=== PATIENT | male | born 1995 | race Two or more races ===

== ENCOUNTER 2019-11-15 11:05 | Inpatient (IN) | payer MEDICAID ==
[~2019-11-15] VITALS: Ht 167.6 cm; Wt 138.1 kg
[~2019-11-15 11:05] MED LIST: CYCL-1 PO
[2019-11-15 15:54] LABS: BASOPHILS % (AUTO) 0.4 % (0-1); EOSINOPHILS # (AUTO) 0.3 X10'3 (0-0.9); EOSINOPHILS % (AUTO) 2.7 % (0-6); HEMATOCRIT 43.2 % (42.0-52.0); HEMOGLOBIN 14.6 g/dl (14.0-17.9); LYMPHOCYTES # (AUTO) 2.6 X10'3 (1.1-4.8); MEAN CORPUSCULAR HEMOGLOBIN 32.2 PG (27.0-31.0); MEAN CORPUSCULAR HGB CONC 33.8 g/dL (33.0-36.5); MEAN CORPUSCULAR VOLUME 95.5 FL (78-98); MEAN PLATELET VOLUME 7.1 FL (7.4-10.4); MONOCYTES # (AUTO) 0.9 X10'3 (0-0.9); MONOCYTES % (AUTO) 8.5 % (2-12); NEUTROPHILS # (AUTO) 6.6 X10'3 (1.8-7.7); NEUTROPHILS % (AUTO) 63.4 % (42-75); PLATELET COUNT 302 X10'3 (140-440); RED BLOOD COUNT 4.53 X10'6 (4.70-6.10); RED CELL DISTRIBUTION WIDTH 15.2 % (11.5-14.5); WHITE BLOOD COUNT 10.5 X10'3 (4.5-11.0)
[2019-11-15 16:05] LABS: ALANINE AMINOTRANSFERASE 93 U/L (12-78); ALBUMIN/GLOBULIN RATIO 0.8 (1.1-1.5); ALKALINE PHOSPHATASE 126 IU/L (46-116); ANION GAP 8 (8-16); ASPARTATE AMINO TRANSFERASE 37 U/L (10-37); BILIRUBIN,TOTAL 0.4 MG/DL (0.1-1.0); BLOOD UREA NITROGEN 16 MG/DL (7-18); BUN/CREATININE RATIO 12.3 (5.4-32.0); CALCIUM 9.2 MG/DL (8.5-10.1); CHLORIDE 107 MMOL/L (99-107); GLUCOSE 79 MG/DL (70-104); POTASSIUM 3.7 MMOL/L (3.5-5.1); SODIUM 144 MMOL/L (135-145); TOTAL CARBON DIOXIDE 29.1 MMOL/L (24-32); TOTAL PROTEIN 9.2 G/DL (6.4-8.2); eGFR 70 ML/MIN
--- NOTE | 2019-11-15 16:15 | NUR ---
patient refused strraight cath and also reports he is "not able to pee right now" Karri made aware,ordered to bladder scan patient.Tech to get scanner to pcu.
[2019-11-15] MEDS ORDERED: normal saline 1000ML IV soln IVB ONE (17:35)
--- NOTE | 2019-11-15 17:53 | NUR ---
ATTEMPTED TO CALL PTS GIRL FRIEND WENT TO VOICE MAIL MSG LEFT
--- NOTE | 2019-11-15 18:02 | NUR ---
PATIENT REFUSING EKG, WILL NOTIFY PROVIDER
[2019-11-15 18:06] LABS: PARTIAL THROMBOPLASTIN TIME 26 SECONDS (22-32)
[2019-11-15 18:08] LABS: ETHANOL < 0.010 GM/DL (0.0-0.010); TROPONIN I < 0.04 NG/ML (0.0-0.05)
[2019-11-15] MEDS ORDERED: LORazepam 2 mg/ml vial IV ONE (21:20)
[2019-11-15] MEDS ORDERED: fentaNYL/PF 50MCG/1 ML 2ML syringe ONE (21:35)
[2019-11-15] MEDS ORDERED: LIDOcaine 1% (10mg/ml) 2ml vial ONE (21:37)
[2019-11-15 23:13] LABS: APPEARANCE,CSF CLEAR; CSF SUPERNATANT COLOR COLORLESS; CSF VOLUME 8 ML
[2019-11-15 23:16] LABS: APPEARANCE,CSF CLEAR; CSF SUPERNATANT COLOR COLORLESS; CSF VOLUME 8 ML
[2019-11-15 23:18] LABS: CSF RBC 0 /CU MM (0); CSF WBC CT 1 /CU MM (0-5)
[2019-11-15 23:22] LABS: GLUCOSE,CSF 62 MG/DL (40-75); TOTAL PROTEIN,CSF 37 MG/DL (15-45)
[2019-11-15 23:23] LABS: TUBE# COUNTED 1
[2019-11-15 23:24] LABS: CSF RBC 26 /CU MM (0); CSF WBC CT 3 /CU MM (0-5)
[2019-11-15 23:25] LABS: TUBE# COUNTED 4
[2019-11-15] MEDS ORDERED: acetaminophen 325mg tablet PO PRN ×2 (23:25)
[2019-11-15] MEDS ORDERED: magnesium hydroxide 30ml (MOM) UD suspension PO PRN (23:25)
[2019-11-15] MEDS: K, MAG and/or Phos replacement - Verify level? MC SCH (23:25)
[2019-11-15] MEDS ORDERED: potassium Cl 20 mEq SR tablet PO PRN (23:25)
[2019-11-15] MEDS ORDERED: potassium CL 10mEq/100ml bag 100 ML IV PRN ×2 (23:25)
[2019-11-16] VITALS (18 sets, daily range): BP systolic 90–133; BP diastolic 46–76
--- NOTE | 2019-11-16 00:22 | NUR ---
Patient continues to take his monitor off despite reminders from nurse to keep it on. Girlfriend at bedside encouraging him to keep it on but he continues to remove it
[2019-11-16] MEDS: normal saline 1000ml 1,000 ML IV SCH ×2 (01:45→11:19)
[2019-11-16] MEDS ORDERED: IMMUNE GLOBULIN 10 GM/100 ML IV SCH (02:00)
--- NOTE | 2019-11-16 02:05 | NUR ---
Patient in room ED 11. I have received report from HERACLIO Cuellar and had the opportunity to ask questions and assume patient care. Patient to be transported via gurney to CICU room 2011.
--- NOTE | 2019-11-16 02:15 | NUR ---
Patient arrived from ER via gurney. Patient is awake and oriented to name and date. Patient does not know location, date or why he is here. Patient transferred via slider board to ICU bed. Patient placed on first line supervisor showing normal sinus rhythm. Vital signs assessed. Bed bath given, 2 RN skin check completed. Patient is able to feel touch to right foot and toes. Left foot and great toe only. Patient unable to move his feet, feet and lower legs flaccid. Upper extremities with equal movement. Patient appears to be fatigued and is slow to respond to questions. After assessment, improvement to orientation. Patient oriented to person, and place. He remains confused about date and events. Patient denies any pins and needles sensation to lower extremities. Patient with numbness to bilateral lower extremities, lower extremities are flaccid. Patient is unable to lift legs off of gurney.
[2019-11-16] MEDS ORDERED: LIDOcaine 2% 10ml TOPICAL JELLY (Urojet) TP ONE (03:30)
[2019-11-16 04:17] LABS: URINE AMPHETAMINE SCREEN NEGATIVE (Neg); URINE BARBITUATE SCREEN NEGATIVE (Neg); URINE BENZODIAZEPINES SCREEN NEGATIVE (Neg); URINE CANNABINOID SCREEN POSITIVE (Neg); URINE COCAINE SCREEN NEGATIVE (Neg); URINE METHADONE SCREEN NEGATIVE (Neg); URINE OPIATE SCREEN NEGATIVE (Neg); URINE PHENCYCLIDINE SCREEN NEGATIVE (Neg)
[2019-11-16 04:41] LABS: CLARITY,URINE CLEAR (Clear); COLOR,URINE AMBER (Yellow); GLUCOSE, URINE NEGATIVE (Neg); KETONES,URINE TRACE mg/dl (Neg); LEUKOCYTE ESTERASE ,URINE NEGATIVE (Neg); NITRITES, URINE NEGATIVE (Neg); OCCULT BLOOD,URINE NEGATIVE (Neg); PH,URINE 5.5 (4.8-8.0); PROTEIN,URINE TRACE mg/dl (Neg)
[2019-11-16 04:43] LABS: UA COLLECTION TYPE CLN CATCH MIDSTREAM
[2019-11-16 04:54] LABS: RBC,URINE 0-2 /HPF (0-2); WBC,URINE 0-4 /HPF (0-4)
[2019-11-16 04:55] LABS: BACTERIA,URINE 1+ /HPF (Neg); MUCUS STRANDS MODERATE /LPF (Neg); SQUAMOUS EPITHELIAL CELL,UR NONE SEEN /LPF (FEW)
[2019-11-16 04:56] LABS: CAL OXALATE CRYSTALS FEW /HPF (NEGATIVE)
[2019-11-16] MEDS: ondansetron/PF 4mg/2ml inj IV PRN ×2 (05:13→08:10)
[2019-11-16 05:41] LABS: ALANINE AMINOTRANSFERASE 72 U/L (12-78); ALBUMIN 3.4 G/DL (3.4-5.0); ALBUMIN/GLOBULIN RATIO 0.7 (1.1-1.5); ALKALINE PHOSPHATASE 105 IU/L (46-116); ANION GAP 9 (8-16); ASPARTATE AMINO TRANSFERASE 25 U/L (10-37); BILIRUBIN,TOTAL 0.3 MG/DL (0.1-1.0); BLOOD UREA NITROGEN 14 MG/DL (7-18); BUN/CREATININE RATIO 12.5 (5.4-32.0); CALCIUM 8.2 MG/DL (8.5-10.1); CHLORIDE 109 MMOL/L (99-107); CREATININE 1.12 MG/DL (0.60-1.10); GLUCOSE 99 MG/DL (70-104); PHOSPHORUS 3.3 MG/DL (2.3-4.5); POTASSIUM 3.4 MMOL/L (3.5-5.1); SODIUM 144 MMOL/L (135-145); TOTAL PROTEIN 8.3 G/DL (6.4-8.2); eGFR 83 ML/MIN
[2019-11-16 05:56] LABS: BASOPHILS % (AUTO) 0.5 % (0-1); EOSINOPHILS # (AUTO) 0.3 X10'3 (0-0.9); EOSINOPHILS % (AUTO) 4.6 % (0-6); HEMATOCRIT 38.4 % (42.0-52.0); LYMPHOCYTES # (AUTO) 2.4 X10'3 (1.1-4.8); LYMPHOCYTES % (AUTO) 31.4 % (21-51); MEAN CORPUSCULAR HEMOGLOBIN 32.4 PG (27.0-31.0); MEAN CORPUSCULAR HGB CONC 33.8 g/dL (33.0-36.5); MEAN CORPUSCULAR VOLUME 95.9 FL (78-98); MEAN PLATELET VOLUME 7.7 FL (7.4-10.4); MONOCYTES # (AUTO) 0.7 X10'3 (0-0.9); MONOCYTES % (AUTO) 8.7 % (2-12); NEUTROPHILS # (AUTO) 4.2 X10'3 (1.8-7.7); NEUTROPHILS % (AUTO) 54.8 % (42-75); PLATELET COUNT 278 X10'3 (140-440); RED CELL DISTRIBUTION WIDTH 15.2 % (11.5-14.5); WHITE BLOOD COUNT 7.6 X10'3 (4.5-11.0)
--- NOTE | 2019-11-16 06:29 | NUR ---
Problems reprioritized. Patient report given, questions answered & plan of care reviewed with HERACLIO Gann.
[2019-11-16 06:54] LABS: HIV ANTIBODY 1&2 RAPID NON-REACTIVE (Neg)
[2019-11-16] MEDS: K, MAG and/or Phos replacement - Verify level? MC SCH (08:00)
[2019-11-16] MEDS: pantoprazole 40mg Tablet.DR PO SCH (08:10)
[2019-11-16] MEDS: enoxaparin 40mg/0.4ml syringe SUBCUT SCH (08:10)
--- NOTE | 2019-11-16 09:28 | NUR ---
Dr. Pettit contacted regarding patient frequent bowel movements that are liquidy. Patient has a history of ER visit on 11/06/19 to [facility]. No antibiotic use. Requisition filled out. Left message for Dr. Pettit to contact back.
[2019-11-16] MEDS: potassium Cl 20 mEq SR tablet PO PRN ×2 (17:32→21:34)
--- NOTE | 2019-11-16 17:52 | NUR ---
Report called to receiving nurse. Transferred via hospital bed with all belongings. Special Issues communicated to receiving nurse, Sujata PULLIAM.
--- NOTE | 2019-11-16 18:05 | NUR ---
Patient in room PCU 3020. I have received report from ICU, RN and had the opportunity to ask questions and assume patient care.
--- NOTE | 2019-11-16 18:06 | NUR ---
Pt arrived to unit stable. Oriented pt to room and call light. VS are 127/57-98%-78-18-98.7- 0/10
--- NOTE | 2019-11-16 18:07 | NUR ---
Problems reprioritized. Patient report given, questions answered & plan of care reviewed with HERACLIO Cleveland .
--- NOTE | 2019-11-16 18:30 | NUR ---
Patient in room PCU 3020. I have received report from Sujata PULLIAM and had the opportunity to ask questions and assume patient care.
[2019-11-17] MEDS ORDERED: IMMUNE GLOBULIN 10 GM/100 ML IV ONE ×2 (00:20→02:00)
[2019-11-17] MEDS: ondansetron/PF 4mg/2ml inj IV PRN (00:47)
[2019-11-17] MEDS: normal saline 1000ml 1,000 ML IV SCH ×2 (00:56→15:25)
[2019-11-17 02:00] VITALS: BP 114/55
[2019-11-17] MEDS: potassium Cl 20 mEq SR tablet PO PRN (02:25)
[2019-11-17 05:29] LABS: ALANINE AMINOTRANSFERASE 55 U/L (12-78); ALBUMIN 3.3 G/DL (3.4-5.0); ALBUMIN/GLOBULIN RATIO 0.6 (1.1-1.5); ALKALINE PHOSPHATASE 102 IU/L (46-116); ANION GAP 5 (8-16); ASPARTATE AMINO TRANSFERASE 14 U/L (10-37); BILIRUBIN,TOTAL 0.5 MG/DL (0.1-1.0); BLOOD UREA NITROGEN 9 MG/DL (7-18); BUN/CREATININE RATIO 8.3 (5.4-32.0); CALCIUM 9.2 MG/DL (8.5-10.1); CHLORIDE 107 MMOL/L (99-107); CREATININE 1.09 MG/DL (0.60-1.10); GLUCOSE 106 MG/DL (70-104); MAGNESIUM 2.1 MG/DL (1.5-2.4); PHOSPHORUS 3.2 MG/DL (2.3-4.5); POTASSIUM 3.8 MMOL/L (3.5-5.1); SODIUM 141 MMOL/L (135-145); TOTAL CARBON DIOXIDE 28.9 MMOL/L (24-32); eGFR 85 ML/MIN
--- NOTE | 2019-11-17 06:00 | NUR ---
Patient in room U 3010. I have received report from Adrienne PULLIAM and had the opportunity to ask questions and assume patient care. Patient is sitting in bed watching TV. sitter present.
[2019-11-17 06:18] LABS: BASOPHILS % (AUTO) 0.2 % (0-1); EOSINOPHILS # (AUTO) 0.1 X10'3 (0-0.9); EOSINOPHILS % (AUTO) 1.3 % (0-6); HEMATOCRIT 38.6 % (42.0-52.0); HEMOGLOBIN 13.3 g/dl (14.0-17.9); LYMPHOCYTES # (AUTO) 2.5 X10'3 (1.1-4.8); LYMPHOCYTES % (AUTO) 30.9 % (21-51); MEAN CORPUSCULAR HEMOGLOBIN 33.4 PG (27.0-31.0); MEAN CORPUSCULAR HGB CONC 34.5 g/dL (33.0-36.5); MEAN CORPUSCULAR VOLUME 96.6 FL (78-98); MEAN PLATELET VOLUME 7.5 FL (7.4-10.4); MONOCYTES # (AUTO) 0.5 X10'3 (0-0.9); MONOCYTES % (AUTO) 6.1 % (2-12); NEUTROPHILS # (AUTO) 4.9 X10'3 (1.8-7.7); NEUTROPHILS % (AUTO) 61.5 % (42-75); PLATELET COUNT 312 X10'3 (140-440); RED CELL DISTRIBUTION WIDTH 15.3 % (11.5-14.5)
--- NOTE | 2019-11-17 06:27 | NUR ---
Problems reprioritized. Patient report given, questions answered & plan of care reviewed with Francine PULLIAM.
[2019-11-17 07:00] VITALS: BP 136/80
[2019-11-17] MEDS: pantoprazole 40mg Tablet.DR PO SCH (07:44)
[2019-11-17] MEDS: enoxaparin 40mg/0.4ml syringe SUBCUT SCH (07:44)
[2019-11-17] MEDS: K, MAG and/or Phos replacement - Verify level? MC SCH (07:45)
[2019-11-17 08:10] LABS: IMMUNOGLOBULIN A, QN, SERUM 428 mg/dL (90-386); IMMUNOGLOBULIN G, QN, SERUM 1847 mg/dL (603-1613); IMMUNOGLOBULIN M, QN, SERUM 83 mg/dL (20-172)
[2019-11-17 09:25] LABS: C DIFF ANTIGEN NEGATIVE (NEGATIVE); C DIFF SPECIMEN=DIARRHEA? ACCEPTABLE; C DIFFICILE TOXINS A&B NEGATIVE (Neg)
[2019-11-17] MEDS ORDERED: MISCELLANEOUS INJECTION IV ONE (10:30)
[2019-11-17 11:00] VITALS: BP 106/43
[2019-11-17 15:00] VITALS: BP 113/44
[2019-11-17 18:00] VITALS: BP 137/65
--- NOTE | 2019-11-17 18:11 | NUR ---
Problems reprioritized. Patient report given, questions answered & plan of care reviewed with Adrienne PULLIAM[]. Patient alert, oriented and sitting up in bed at time of transfer
--- NOTE | 2019-11-17 18:32 | NUR ---
Patient in room U 3016. I have received report from Alisa PULLIAM and had the opportunity to ask questions and assume patient care. Addendum: 11/17/19 at 1833 by Megha Gibson RN Francine PULLIAM provided report not Alisa PULLIAM.
[2019-11-17 22:00] VITALS: BP 106/59
[2019-11-18 02:00] VITALS: BP 112/61
[2019-11-18] MEDS ORDERED: IMMUNE GLOBULIN 10 GM/100 ML IV SCH (02:00)
[2019-11-18] MEDS ORDERED: [UNRECOGNIZED DRUG - OTHER] IV SCH (02:00)
[2019-11-18] MEDS: [UNRECOGNIZED DRUG - OTHER] IV SCH (02:56)
[2019-11-18] MEDS: normal saline 1000ml 1,000 ML IV SCH ×2 (05:17→17:47)
--- NOTE | 2019-11-18 06:16 | NUR ---
Problems reprioritized. Patient report given, questions answered & plan of care reviewed with Charito PULLIAM.
--- NOTE | 2019-11-18 06:18 | NUR ---
Patient in room PCU 3016. I have received report from Megha PULLIAM and had the opportunity to ask questions and assume patient care.
[2019-11-18 06:32] LABS: BASOPHILS % (AUTO) 0.3 % (0-1); EOSINOPHILS # (AUTO) 0.2 X10'3 (0-0.9); EOSINOPHILS % (AUTO) 1.9 % (0-6); HEMATOCRIT 38.2 % (42.0-52.0); LYMPHOCYTES # (AUTO) 2.2 X10'3 (1.1-4.8); LYMPHOCYTES % (AUTO) 26.1 % (21-51); MEAN CORPUSCULAR HEMOGLOBIN 32.4 PG (27.0-31.0); MEAN CORPUSCULAR HGB CONC 34.1 g/dL (33.0-36.5); MEAN CORPUSCULAR VOLUME 95.1 FL (78-98); MEAN PLATELET VOLUME 7.4 FL (7.4-10.4); MONOCYTES # (AUTO) 0.7 X10'3 (0-0.9); MONOCYTES % (AUTO) 7.9 % (2-12); NEUTROPHILS # (AUTO) 5.3 X10'3 (1.8-7.7); NEUTROPHILS % (AUTO) 63.8 % (42-75); PLATELET COUNT 333 X10'3 (140-440); RED BLOOD COUNT 4.02 X10'6 (4.70-6.10); WHITE BLOOD COUNT 8.3 X10'3 (4.5-11.0)
[2019-11-18 06:50] VITALS: BP 114/61
[2019-11-18 07:02] LABS: ALANINE AMINOTRANSFERASE 42 U/L (12-78); ALBUMIN 3.2 G/DL (3.4-5.0); ALBUMIN/GLOBULIN RATIO 0.5 (1.1-1.5); ALKALINE PHOSPHATASE 91 IU/L (46-116); ANION GAP 10 (8-16); ASPARTATE AMINO TRANSFERASE 11 U/L (10-37); BILIRUBIN,TOTAL 0.4 MG/DL (0.1-1.0); BLOOD UREA NITROGEN 9 MG/DL (7-18); BUN/CREATININE RATIO 8.9 (5.4-32.0); CALCIUM 8.9 MG/DL (8.5-10.1); CHLORIDE 105 MMOL/L (99-107); CREATININE 1.01 MG/DL (0.60-1.10); GLUCOSE 92 MG/DL (70-104); PHOSPHORUS 3.3 MG/DL (2.3-4.5); POTASSIUM 3.6 MMOL/L (3.5-5.1); SODIUM 143 MMOL/L (135-145); TOTAL CARBON DIOXIDE 27.7 MMOL/L (24-32); TOTAL PROTEIN 9.2 G/DL (6.4-8.2); eGFR > 90 ML/MIN
[2019-11-18] MEDS: pantoprazole 40mg Tablet.DR PO SCH (07:30)
[2019-11-18] MEDS: K, MAG and/or Phos replacement - Verify level? MC SCH (08:00)
[2019-11-18] MEDS: enoxaparin 40mg/0.4ml syringe SUBCUT SCH (08:00)
--- NOTE | 2019-11-18 08:00 | NUR ---
Patient very upset, threatening to leave AMA and pull out Villafuerte, refused morning medications and assessment, educated on need to stay in hospital to finish treatment with IV immune globulin, educated on lab results/test results/Guillain-[place] syndrome and treatment, patient stated he will keep Villafuerte catheter in, will continue to monitor closely and educate as needed.
--- NOTE | 2019-11-18 08:10 | NUR ---
Patient let me perform physical assessment after some education.
--- NOTE | 2019-11-18 09:00 | NUR ---
Walked into the room at patient was sitting on the floor with back against the wall. Assessed patient, no pain, VSS, ripped out his IV, did not hit his head. Notified charge aide, Gary. Patient refusing to allow us to get him back in bed, stated he wants to sit on the floor. educated that he cant sit on the floor but that we can put him in a chair at bedside. piercing artistEsme Bardales RN and I put patient in a chair at bedside. Continuing to monitor the patient closely.
[2019-11-18 11:00] VITALS: BP 123/78
--- NOTE | 2019-11-18 11:57 | NUR ---
Attempted twice to call the patients girlfriend, Chioma, at [phone] to give her an update on the patients plan of care per patient request. The line was busy when I called. Will try again later.
--- NOTE | 2019-11-18 12:47 | NUR ---
Patient found on floor again, VSS, not c/o pain, did not fall, stated "I just slid myself down", lead systems developer Clifford notified, got patient back in bed and educated on the call light (how/when to use). work order put in for bed because am unable to set bed alarm. Frequent rounding being performed, will continue to monitor very closely.
[2019-11-18 15:00] VITALS: BP 101/77
--- NOTE | 2019-11-18 17:49 | NUR ---
Tele neuro consult complete, Dr Maguire aware, order for Vit B12 IM put in computer, updated patient and patients girlfriend, Chioma, on plan of care.
[2019-11-18 18:00] VITALS: BP 137/69
--- NOTE | 2019-11-18 18:21 | NUR ---
Problems reprioritized. Patient report given, questions answered & plan of care reviewed with GIANFRANCO PULLIAM.
--- NOTE | 2019-11-18 18:22 | NUR ---
RECEIVED REPORT FROM VENECIA PULLIAM AND ASSUMED PATIENT CARE
[2019-11-18] MEDS: cyanocobalamin 1,000 mcg/ml inj IM SCH (20:27)
[2019-11-18 22:00] VITALS: BP 130/65
[2019-11-19 02:00] VITALS: BP 123/77
[2019-11-19] MEDS: [UNRECOGNIZED DRUG - OTHER] IV SCH (02:07)
[2019-11-19] MEDS: normal saline 1000ml 1,000 ML IV SCH ×2 (02:10→20:46)
--- NOTE | 2019-11-19 05:12 | NUR ---
PATIENT REFUSING LAB DRAW THIS MORNING. WENT IN TO TALK TO PATIENT WHO WAS VISIBLY UPSET. STATES HE IS SICK OF GETTING STUCK AND NOBODY TELLING HIM ANY RESULTS OF ANYTHING. PATIENT APPEARS VERY FRUSTRATED, ANXIOUS AND IS SHAKING. STARING AT CEILING. AFTER VALIDATING PATIENTS CONCERNS I TRIED TO EXPLAIN THE DIFFICULTY IN OBTAINING A DEFINITIVE GUILLIAN BARRE DIAGNOSIS AND FREQUENT BLOOD TESTING IS NEEDED TO MONITOR PROGRESSION. OFFERED CALLING THE DOCTOR TO GET AN ORDER FOR ATIVAN AND ALSO OFFERED CALLING HIS GIRLFRIEND. ALL HE WOULD RESPOND WITH WAS, "IM SICK OF GETTING STUCK AND NOBODY TELLING ME ANYTHING". PATIENT ALSO SAYING HE WANTS TO LEAVE AMA. EXPLAINED IT IS WITHIN HIS RIGHTS TO LEAVE BUT HIS SYMPTOMS WOULD LIKELY NOT GO AWAY ONCE HOME. ATTEMPTED TO CALL GIRLFRIEND WHO DIDN'T ANSWER. WILL CONTINUE TO CLOSELY MONITOR PATIENT AND PASS INFORMATION ON TO DAY SHIFT INCLUDING REFUSAL OF MORNING LABS.
--- NOTE | 2019-11-19 06:07 | NUR ---
REPORT GIVEN TO VENECIA PULLIAM
--- NOTE | 2019-11-19 06:11 | NUR ---
Patient in room PCU 3016. I have received report from Laila PULLIAM and had the opportunity to ask questions and assume patient care.
[2019-11-19 07:44] LABS: BASOPHILS % (AUTO) 0.2 % (0-1); EOSINOPHILS % (AUTO) 0.4 % (0-6); HEMOGLOBIN 12.5 g/dl (14.0-17.9); LYMPHOCYTES # (AUTO) 1.8 X10'3 (1.1-4.8); LYMPHOCYTES % (AUTO) 21.7 % (21-51); MEAN CORPUSCULAR HEMOGLOBIN 32.6 PG (27.0-31.0); MEAN CORPUSCULAR HGB CONC 34.7 g/dL (33.0-36.5); MEAN CORPUSCULAR VOLUME 93.9 FL (78-98); MEAN PLATELET VOLUME 7.5 FL (7.4-10.4); MONOCYTES # (AUTO) 0.5 X10'3 (0-0.9); MONOCYTES % (AUTO) 6.5 % (2-12); NEUTROPHILS # (AUTO) 5.7 X10'3 (1.8-7.7); NEUTROPHILS % (AUTO) 71.2 % (42-75); PLATELET COUNT 284 X10'3 (140-440); RED BLOOD COUNT 3.84 X10'6 (4.70-6.10); RED CELL DISTRIBUTION WIDTH 15.4 % (11.5-14.5); WHITE BLOOD COUNT 8.1 X10'3 (4.5-11.0)
[2019-11-19] MEDS: pantoprazole 40mg Tablet.DR PO SCH (07:51)
[2019-11-19] MEDS: HYDROcodone/acetaminophen 5mg/325mg tablet PO PRN ×2 (07:51→12:51)
[2019-11-19] MEDS: LORazepam 1 MG tablet PO PRN (07:51)
[2019-11-19] MEDS: cyanocobalamin 1,000 mcg/ml inj IM SCH (07:52)
[2019-11-19 08:00] LABS: ALANINE AMINOTRANSFERASE 41 U/L (12-78); ALBUMIN/GLOBULIN RATIO 0.5 (1.1-1.5); ALKALINE PHOSPHATASE 83 IU/L (46-116); ANION GAP 7 (8-16); ASPARTATE AMINO TRANSFERASE 17 U/L (10-37); BILIRUBIN,TOTAL 0.6 MG/DL (0.1-1.0); BLOOD UREA NITROGEN 10 MG/DL (7-18); BUN/CREATININE RATIO 10.2 (5.4-32.0); CALCIUM 8.2 MG/DL (8.5-10.1); CHLORIDE 105 MMOL/L (99-107); CREATININE 0.98 MG/DL (0.60-1.10); GLUCOSE 103 MG/DL (70-104); MAGNESIUM 1.9 MG/DL (1.5-2.4); PHOSPHORUS 3.4 MG/DL (2.3-4.5); POTASSIUM 3.4 MMOL/L (3.5-5.1); SODIUM 138 MMOL/L (135-145); TOTAL CARBON DIOXIDE 26.3 MMOL/L (24-32); TOTAL PROTEIN 9.1 G/DL (6.4-8.2); eGFR > 90 ML/MIN
[2019-11-19] MEDS: K, MAG and/or Phos replacement - Verify level? MC SCH (08:00)
[2019-11-19] MEDS: enoxaparin 40mg/0.4ml syringe SUBCUT SCH (08:00)
--- NOTE | 2019-11-19 09:42 | NUR ---
Called the patients girlfriend, Chioma, at [phone] and updated her on the patients plan of care. Will continue to monitor the patient closely.
[2019-11-19] MEDS ORDERED: magnesium Cl slow-release 64mg tablet PO PRN (09:50)
[2019-11-19] MEDS ORDERED: potassium Cl 20 mEq SR tablet PO PRN ×2 (09:50)
[2019-11-19] MEDS ORDERED: potassium CL 10mEq/100ml bag 100 ML IV PRN (09:50)
[2019-11-19] MEDS: potassium Cl 20 mEq SR tablet PO PRN ×3 (10:04→19:40)
[2019-11-19 11:00] VITALS: BP 121/67
[2019-11-19 15:00] VITALS: BP 112/70
[2019-11-19 15:09] LABS: A/G RATIO 0.7 (0.7-1.7); ALBUMIN 3.1 g/dL (2.9-4.4); BETA GLOBULIN 1.3 g/dL (0.7-1.3); GAMMA GLOBULIN 1.8 g/dL (0.4-1.8); GLOBULIN, TOTAL 4.2 g/dL (2.2-3.9); M-SPIKE Not Observed g/dL (Not Observed); PROTEIN, TOTAL, SERUM 7.3 g/dL (6.0-8.5)
--- NOTE | 2019-11-19 17:30 | NUR ---
Villafuerte removed at 1245, went to bladder scan the patient as he had not yet voided, patient was refusing to let me bladder scan. Notified set up and charger who was able to accurately bladder scan the patient, bladder scan was 260 mls.
[2019-11-19 18:00] VITALS: BP 142/71
--- NOTE | 2019-11-19 18:29 | NUR ---
Problems reprioritized. Patient report given, questions answered & plan of care reviewed with Mayank PULLIAM.
[2019-11-19 23:00] VITALS: BP 110/39
[2019-11-20] MEDS ORDERED: IMMUNE GLOBULIN 10 GM/100 ML IV SCH (02:00)
[2019-11-20 05:35] LABS: BASOPHILS % (AUTO) 0.3 % (0-1); EOSINOPHILS % (AUTO) 0.5 % (0-6); HEMATOCRIT 34.6 % (42.0-52.0); HEMOGLOBIN 11.9 g/dl (14.0-17.9); LYMPHOCYTES # (AUTO) 1.4 X10'3 (1.1-4.8); LYMPHOCYTES % (AUTO) 19.7 % (21-51); MEAN CORPUSCULAR HEMOGLOBIN 32.9 PG (27.0-31.0); MEAN CORPUSCULAR HGB CONC 34.4 g/dL (33.0-36.5); MEAN CORPUSCULAR VOLUME 95.9 FL (78-98); MEAN PLATELET VOLUME 7.6 FL (7.4-10.4); MONOCYTES # (AUTO) 0.6 X10'3 (0-0.9); MONOCYTES % (AUTO) 7.6 % (2-12); NEUTROPHILS # (AUTO) 5.2 X10'3 (1.8-7.7); NEUTROPHILS % (AUTO) 71.9 % (42-75); PLATELET COUNT 271 X10'3 (140-440); RED BLOOD COUNT 3.61 X10'6 (4.70-6.10); RED CELL DISTRIBUTION WIDTH 15.1 % (11.5-14.5); WHITE BLOOD COUNT 7.2 X10'3 (4.5-11.0)
[2019-11-20 05:39] LABS: ALANINE AMINOTRANSFERASE 44 U/L (12-78); ALBUMIN 2.7 G/DL (3.4-5.0); ALBUMIN/GLOBULIN RATIO 0.4 (1.1-1.5); ALKALINE PHOSPHATASE 75 IU/L (46-116); ANION GAP 8 (8-16); ASPARTATE AMINO TRANSFERASE 24 U/L (10-37); BILIRUBIN,TOTAL 0.5 MG/DL (0.1-1.0); BLOOD UREA NITROGEN 10 MG/DL (7-18); BUN/CREATININE RATIO 10.2 (5.4-32.0); CALCIUM 8.3 MG/DL (8.5-10.1); CHLORIDE 106 MMOL/L (99-107); CREATININE 0.98 MG/DL (0.60-1.10); GLUCOSE 94 MG/DL (70-104); MAGNESIUM 1.9 MG/DL (1.5-2.4); PHOSPHORUS 3.4 MG/DL (2.3-4.5); POTASSIUM 4.1 MMOL/L (3.5-5.1); SODIUM 137 MMOL/L (135-145); TOTAL CARBON DIOXIDE 23.3 MMOL/L (24-32); TOTAL PROTEIN 9.6 G/DL (6.4-8.2); eGFR > 90 ML/MIN
--- NOTE | 2019-11-20 06:05 | NUR ---
Patient in room PCU 3016. I have received report from HERACLIO Talley and had the opportunity to ask questions and assume patient care.
--- NOTE | 2019-11-20 06:15 | NUR ---
Patient in room PCU 3016. I have received report from Mayank PULLIAM and had the opportunity to ask questions and assume patient care. Patient awake and resting comfortably in bed.
[2019-11-20 07:00] VITALS: BP 122/67
[2019-11-20] MEDS: enoxaparin 40mg/0.4ml syringe SUBCUT SCH (08:00)
[2019-11-20] MEDS: cyanocobalamin 1,000 mcg/ml inj IM SCH ×2 (08:00→17:27)
[2019-11-20] MEDS: K, MAG and/or Phos replacement - Verify level? MC SCH (08:00)
[2019-11-20] MEDS: pantoprazole 40mg Tablet.DR PO SCH (08:40)
[2019-11-20] MEDS: normal saline 1000ml 1,000 ML IV SCH (08:42)
[2019-11-20 11:00] VITALS: BP 101/67
--- NOTE | 2019-11-20 14:40 | NUR ---
Initial: per MD note admitted with Guillain Chan syndrome, unable to move lower legs per MD note. Receiving vitamin B12 d/t low serum vitamin B 12 levels. Pending IF lab test. Had copious stools out 11/15, none since. appetite is good, eating 75% average regular diet. Recommend: 1. continue regular diet 2. continue cyanocobalamin 3. wt per rx 4. bowel care as needed Addendum: 11/20/19 at [address] Amended: Links added.
[2019-11-20 15:00] VITALS: BP 109/67
[2019-11-20] MEDS: HYDROcodone/acetaminophen 5mg/325mg tablet PO PRN ×2 (17:38→21:29)
--- NOTE | 2019-11-20 18:11 | NUR ---
[place] documentation: I have reviewed and agree with all interventions, assessments performed and documented by HERACLIO Young.
--- NOTE | 2019-11-20 18:11 | NUR ---
[place] Medication Administration: For this medication-pass time frame, all medication were reviewed, dispensed, administered and documented per hospital policy by HERACLIO Young.
--- NOTE | 2019-11-20 18:12 | NUR ---
Problems reprioritized. Patient report given, questions answered & plan of care reviewed with HERACLIO Talley. All patient needs met at this time.
[2019-11-20 18:56] VITALS: BP 127/72
[2019-11-20 23:00] VITALS: BP 116/52
[2019-11-21] MEDS: normal saline 1000ml 1,000 ML IV SCH ×2 (01:30→14:58)
[2019-11-21 03:00] VITALS: BP 105/69
[2019-11-21 05:38] LABS: ALANINE AMINOTRANSFERASE 44 U/L (12-78); ALBUMIN 2.7 G/DL (3.4-5.0); ALBUMIN/GLOBULIN RATIO 0.4 (1.1-1.5); ALKALINE PHOSPHATASE 81 IU/L (46-116); ANION GAP 5 (8-16); ASPARTATE AMINO TRANSFERASE 20 U/L (10-37); BASOPHILS % (AUTO) 0.2 % (0-1); BILIRUBIN,TOTAL 0.9 MG/DL (0.1-1.0); BLOOD UREA NITROGEN 11 MG/DL (7-18); CALCIUM 8.2 MG/DL (8.5-10.1); CHLORIDE 105 MMOL/L (99-107); EOSINOPHILS % (AUTO) 0.5 % (0-6); GLUCOSE 89 MG/DL (70-104); HEMATOCRIT 34.3 % (42.0-52.0); LYMPHOCYTES # (AUTO) 1.5 X10'3 (1.1-4.8); LYMPHOCYTES % (AUTO) 18.6 % (21-51); MEAN CORPUSCULAR HEMOGLOBIN 33.1 PG (27.0-31.0); MEAN CORPUSCULAR HGB CONC 34.9 g/dL (33.0-36.5); MEAN CORPUSCULAR VOLUME 94.7 FL (78-98); MEAN PLATELET VOLUME 7.6 FL (7.4-10.4); MONOCYTES # (AUTO) 0.6 X10'3 (0-0.9); MONOCYTES % (AUTO) 7.7 % (2-12); PHOSPHORUS 3.6 MG/DL (2.3-4.5); PLATELET COUNT 283 X10'3 (140-440); POTASSIUM 3.9 MMOL/L (3.5-5.1); RED BLOOD COUNT 3.62 X10'6 (4.70-6.10); SODIUM 136 MMOL/L (135-145); TOTAL CARBON DIOXIDE 26.3 MMOL/L (24-32); TOTAL PROTEIN 9.3 G/DL (6.4-8.2); WHITE BLOOD COUNT 8.2 X10'3 (4.5-11.0); eGFR > 90 ML/MIN
--- NOTE | 2019-11-21 06:10 | NUR ---
Patient in room PCU 3016. I have received report from Mayank PULLIAM and had the opportunity to ask questions and assume patient care. Pt. awoke on entering room, resting comfortably in bed.
--- NOTE | 2019-11-21 06:12 | NUR ---
Patient in room PCU 3016. I have received report from HERACLIO Talley and had the opportunity to ask questions and assume patient care. Pt resting comfortably, no needs at this time.
[2019-11-21 07:00] VITALS: BP 118/20
[2019-11-21] MEDS: enoxaparin 40mg/0.4ml syringe SUBCUT SCH (08:00)
[2019-11-21] MEDS: K, MAG and/or Phos replacement - Verify level? MC SCH (08:00)
[2019-11-21] MEDS: pantoprazole 40mg Tablet.DR PO SCH (08:11)
[2019-11-21 11:00] VITALS: BP 99/54
[2019-11-21] MEDS: LORazepam 1 MG tablet PO PRN (12:26)
[2019-11-21] MEDS: HYDROcodone/acetaminophen 5mg/325mg tablet PO PRN (12:27)
[2019-11-21] MEDS: cyanocobalamin 1,000 mcg/ml inj IM SCH (14:58)
[2019-11-21 15:00] VITALS: BP 105/70
[2019-11-21 18:00] VITALS: BP 108/70
--- NOTE | 2019-11-21 18:30 | NUR ---
Patient in room PCU 3016. I have received report from HERACLIO Welsh and had the opportunity to ask questions and assume patient care.
--- NOTE | 2019-11-21 18:30 | NUR ---
[place] documentation: I have reviewed and agree with all interventions, assessments performed and documented by HERACLIO Young.
--- NOTE | 2019-11-21 18:30 | NUR ---
Problems reprioritized. Patient report given, questions answered & plan of care reviewed with Sherry RN. Patient resting in bed comfortably with no signs of distress.
--- NOTE | 2019-11-21 18:31 | NUR ---
Problems reprioritized. Patient report given, questions answered & plan of care reviewed with Bruce RN. Pt resting comfortably, all pt needs met at this time.
--- NOTE | 2019-11-21 18:31 | NUR ---
[place] Medication Administration: For this medication-pass time frame, all medication were reviewed, dispensed, administered and documented per hospital policy by HERACLIO Young.
[2019-11-22 02:00] VITALS: BP 124/63
[2019-11-22] MEDS: normal saline 1000ml 1,000 ML IV SCH ×2 (02:05→15:25)
[2019-11-22 05:20] LABS: BASOPHILS % (AUTO) 0.2 % (0-1); EOSINOPHILS % (AUTO) 0.3 % (0-6); HEMATOCRIT 33.9 % (42.0-52.0); HEMOGLOBIN 11.6 g/dl (14.0-17.9); LYMPHOCYTES # (AUTO) 1.8 X10'3 (1.1-4.8); LYMPHOCYTES % (AUTO) 18.8 % (21-51); MEAN CORPUSCULAR HEMOGLOBIN 32.3 PG (27.0-31.0); MEAN CORPUSCULAR HGB CONC 34.4 g/dL (33.0-36.5); MEAN CORPUSCULAR VOLUME 94.1 FL (78-98); MEAN PLATELET VOLUME 7.8 FL (7.4-10.4); MONOCYTES # (AUTO) 0.9 X10'3 (0-0.9); MONOCYTES % (AUTO) 9.1 % (2-12); NEUTROPHILS # (AUTO) 6.8 X10'3 (1.8-7.7); NEUTROPHILS % (AUTO) 71.6 % (42-75); PLATELET COUNT 289 X10'3 (140-440); RED CELL DISTRIBUTION WIDTH 15.2 % (11.5-14.5); WHITE BLOOD COUNT 9.5 X10'3 (4.5-11.0)
[2019-11-22 05:46] LABS: ALANINE AMINOTRANSFERASE 49 U/L (12-78); ALBUMIN 2.8 G/DL (3.4-5.0); ALBUMIN/GLOBULIN RATIO 0.4 (1.1-1.5); ALKALINE PHOSPHATASE 92 IU/L (46-116); ANION GAP 8 (8-16); ASPARTATE AMINO TRANSFERASE 24 U/L (10-37); BILIRUBIN,TOTAL 0.9 MG/DL (0.1-1.0); BLOOD UREA NITROGEN 11 MG/DL (7-18); BUN/CREATININE RATIO 10.4 (5.4-32.0); CALCIUM 8.3 MG/DL (8.5-10.1); CHLORIDE 103 MMOL/L (99-107); CREATININE 1.06 MG/DL (0.60-1.10); GLUCOSE 97 MG/DL (70-104); MAGNESIUM 2.1 MG/DL (1.5-2.4); PHOSPHORUS 3.8 MG/DL (2.3-4.5); POTASSIUM 3.8 MMOL/L (3.5-5.1); SODIUM 135 MMOL/L (135-145); TOTAL CARBON DIOXIDE 24.5 MMOL/L (24-32); TOTAL PROTEIN 9.2 G/DL (6.4-8.2); eGFR 88 ML/MIN
--- NOTE | 2019-11-22 06:06 | NUR ---
Patient in room PCU 3016b. I have received report from MARCUS PULLIAM and had the opportunity to ask questions and assume patient care. Addendum: 11/22/19 at 0941 by Anitha Amor RN report received from Sherry PULLIAM
--- NOTE | 2019-11-22 06:15 | NUR ---
Patient in room U 3016. I have received report from Sherry PULLIAM and had the opportunity to ask questions and assume patient care. Patient sleeping in bed comfortably, in no distress.
--- NOTE | 2019-11-22 06:34 | NUR ---
Problems reprioritized. Patient report given, questions answered & plan of care reviewed with Anitha RN and Hector PULLIAM.
[2019-11-22 07:00] VITALS: BP 133/77
[2019-11-22] MEDS: K, MAG and/or Phos replacement - Verify level? MC SCH (08:00)
[2019-11-22] MEDS: enoxaparin 40mg/0.4ml syringe SUBCUT SCH (08:22)
[2019-11-22] MEDS: pantoprazole 40mg Tablet.DR PO SCH (08:22)
[2019-11-22] MEDS: cyanocobalamin 1,000 mcg/ml inj IM SCH (08:23)
[2019-11-22 11:00] VITALS: BP 133/85
--- NOTE | 2019-11-22 14:30 | NUR ---
PT working with patient, agree on trapeze for patient bed, will place patient on trapeze bed
[2019-11-22 15:00] VITALS: BP 133/83
[2019-11-22 18:00] VITALS: BP 113/59
--- NOTE | 2019-11-22 18:15 | NUR ---
Patient in room PCU 3016. I have received report from HERACLIO Young and had the opportunity to ask questions and assume patient care.
--- NOTE | 2019-11-22 18:24 | NUR ---
Problems reprioritized. Patient report given, questions answered & plan of care reviewed with Sherry RN. Patient resting in bed comfortably watching television.
--- NOTE | 2019-11-22 18:26 | NUR ---
Problems reprioritized. Patient report given, questions answered & plan of care reviewed with Sherry PULLIAM.
--- NOTE | 2019-11-22 18:26 | NUR ---
[place] Medication Administration: For this medication-pass time frame, all medication were reviewed, dispensed, administered and documented per hospital policy by HERACLIO Young.
--- NOTE | 2019-11-22 18:26 | NUR ---
[place] documentation: I have reviewed and agree with all interventions, assessments performed and documented by HERACLIO Young.
[2019-11-22] MEDS: HYDROcodone/acetaminophen 5mg/325mg tablet PO PRN (22:10)
[2019-11-22] MEDS: LORazepam 1 MG tablet PO PRN (23:04)
[2019-11-22] MEDS: HYDROcodone/acetaminophen 10/325mg tab PO PRN (23:04)
[2019-11-23] MEDS: normal saline 1000ml 1,000 ML IV SCH ×2 (03:17→18:05)
[2019-11-23 03:19] VITALS: BP 113/77
[2019-11-23] MEDS: HYDROcodone/acetaminophen 10/325mg tab PO PRN ×3 (05:36→19:17)
[2019-11-23 06:00] VITALS: BP 134/71
--- NOTE | 2019-11-23 06:12 | NUR ---
Problems reprioritized. Patient report given, questions answered & plan of care reviewed with HERACLIO Victoria.
--- NOTE | 2019-11-23 06:13 | NUR ---
Patient in room PCU 3016. I have received report from HERACLIO Powell and had the opportunity to ask questions and assume patient care.
[2019-11-23] MEDS: cyanocobalamin 1,000 mcg/ml inj IM SCH (07:11)
[2019-11-23] MEDS: pantoprazole 40mg Tablet.DR PO SCH (07:12)
[2019-11-23] MEDS: enoxaparin 40mg/0.4ml syringe SUBCUT SCH (07:12)
[2019-11-23 07:13] LABS: BASOPHILS % (AUTO) 0.3 % (0-1); EOSINOPHILS % (AUTO) 0.2 % (0-6); HEMATOCRIT 33.1 % (42.0-52.0); HEMOGLOBIN 11.5 g/dl (14.0-17.9); LYMPHOCYTES # (AUTO) 1.6 X10'3 (1.1-4.8); LYMPHOCYTES % (AUTO) 14.3 % (21-51); MEAN CORPUSCULAR HEMOGLOBIN 32.7 PG (27.0-31.0); MEAN CORPUSCULAR HGB CONC 34.8 g/dL (33.0-36.5); MEAN CORPUSCULAR VOLUME 93.9 FL (78-98); MEAN PLATELET VOLUME 7.6 FL (7.4-10.4); MONOCYTES % (AUTO) 9.7 % (2-12); NEUTROPHILS # (AUTO) 8.2 X10'3 (1.8-7.7); NEUTROPHILS % (AUTO) 75.5 % (42-75); PLATELET COUNT 324 X10'3 (140-440); RED BLOOD COUNT 3.52 X10'6 (4.70-6.10); RED CELL DISTRIBUTION WIDTH 15.1 % (11.5-14.5); WHITE BLOOD COUNT 10.9 X10'3 (4.5-11.0)
[2019-11-23 07:26] LABS: ALANINE AMINOTRANSFERASE 61 U/L (12-78); ALBUMIN 2.6 G/DL (3.4-5.0); ALBUMIN/GLOBULIN RATIO 0.4 (1.1-1.5); ALKALINE PHOSPHATASE 101 IU/L (46-116); ANION GAP 7 (8-16); ASPARTATE AMINO TRANSFERASE 24 U/L (10-37); BLOOD UREA NITROGEN 10 MG/DL (7-18); BUN/CREATININE RATIO 10.8 (5.4-32.0); CALCIUM 8.3 MG/DL (8.5-10.1); CHLORIDE 104 MMOL/L (99-107); CREATININE 0.93 MG/DL (0.60-1.10); GLUCOSE 95 MG/DL (70-104); MAGNESIUM 2.1 MG/DL (1.5-2.4); PHOSPHORUS 3.7 MG/DL (2.3-4.5); POTASSIUM 3.8 MMOL/L (3.5-5.1); SODIUM 136 MMOL/L (135-145); TOTAL CARBON DIOXIDE 25.3 MMOL/L (24-32); eGFR > 90 ML/MIN
[2019-11-23] MEDS: K, MAG and/or Phos replacement - Verify level? MC SCH (08:00)
[2019-11-23 11:00] VITALS: BP 130/77
[2019-11-23] MEDS ORDERED: tPA-cathflo 2 MG/2 ml IV flush IVF ONE (12:20)
[2019-11-23] MEDS ORDERED: simethicone 80mg chew tab PO ONE (13:40)
--- NOTE | 2019-11-23 14:35 | NUR ---
Problems reprioritized. Patient report given, questions answered & plan of care reviewed with Anitha Jiménez RN.
--- NOTE | 2019-11-23 14:40 | NUR ---
Patient in room PCU 3016. I have received report from Esme PULLIAM and had the opportunity to ask questions and assume patient care.
[2019-11-23 15:00] VITALS: BP 115/68
--- NOTE | 2019-11-23 16:46 | NUR ---
Patient in bed resting. Patient complaining of ext in right arm and the want to take it out. This PIV does not flush even with Cathflo. PIV was removed, catheter was intact and patient tolerated well. Will continue to monitor.
--- NOTE | 2019-11-23 18:26 | NUR ---
Problems reprioritized. Patient report given, questions answered & plan of care reviewed with Joyce PULLIAM.
[2019-11-23 19:00] VITALS: BP 131/81
[2019-11-23] MEDS: cyclobenzaprine 10mg tablet PO SCH (22:18)
[2019-11-23] MEDS: Melatonin 3mg tablet PO PRN (22:18)
[2019-11-23 23:00] VITALS: BP 112/64
[2019-11-24] MEDS: HYDROcodone/acetaminophen 10/325mg tab PO PRN (02:31)
[2019-11-24 03:00] VITALS: BP 116/70
[2019-11-24 06:29] LABS: BASOPHILS # (AUTO) 0.1 X10'3 (0-0.2); BASOPHILS % (AUTO) 0.5 % (0-1); EOSINOPHILS % (AUTO) 0.2 % (0-6); HEMATOCRIT 32.3 % (42.0-52.0); HEMOGLOBIN 11.2 g/dl (14.0-17.9); LYMPHOCYTES # (AUTO) 1.8 X10'3 (1.1-4.8); LYMPHOCYTES % (AUTO) 14.2 % (21-51); MEAN CORPUSCULAR HEMOGLOBIN 32.7 PG (27.0-31.0); MEAN CORPUSCULAR HGB CONC 34.7 g/dL (33.0-36.5); MEAN CORPUSCULAR VOLUME 94.3 FL (78-98); MEAN PLATELET VOLUME 7.7 FL (7.4-10.4); NEUTROPHILS # (AUTO) 9.6 X10'3 (1.8-7.7); NEUTROPHILS % (AUTO) 77.1 % (42-75); PLATELET COUNT 352 X10'3 (140-440); RED BLOOD COUNT 3.42 X10'6 (4.70-6.10); RED CELL DISTRIBUTION WIDTH 15.5 % (11.5-14.5); WHITE BLOOD COUNT 12.5 X10'3 (4.5-11.0)
[2019-11-24 06:57] LABS: ALANINE AMINOTRANSFERASE 60 U/L (12-78); ALBUMIN 2.6 G/DL (3.4-5.0); ALBUMIN/GLOBULIN RATIO 0.4 (1.1-1.5); ALKALINE PHOSPHATASE 110 IU/L (46-116); ANION GAP 10 (8-16); ASPARTATE AMINO TRANSFERASE 22 U/L (10-37); BLOOD UREA NITROGEN 10 MG/DL (7-18); BUN/CREATININE RATIO 10.6 (5.4-32.0); CALCIUM 8.7 MG/DL (8.5-10.1); CHLORIDE 102 MMOL/L (99-107); CREATININE 0.94 MG/DL (0.60-1.10); GLUCOSE 95 MG/DL (70-104); PHOSPHORUS 3.8 MG/DL (2.3-4.5); POTASSIUM 3.9 MMOL/L (3.5-5.1); SODIUM 136 MMOL/L (135-145); TOTAL CARBON DIOXIDE 23.8 MMOL/L (24-32); TOTAL PROTEIN 9.2 G/DL (6.4-8.2); eGFR > 90 ML/MIN
[2019-11-24 07:00] VITALS: BP 108/60
[2019-11-24] MEDS: normal saline 1000ml 1,000 ML IV SCH (07:25)
[2019-11-24] MEDS: pantoprazole 40mg Tablet.DR PO SCH (07:47)
[2019-11-24] MEDS: enoxaparin 40mg/0.4ml syringe SUBCUT SCH (07:49)
[2019-11-24] MEDS: cyanocobalamin 1,000 mcg/ml inj IM SCH (07:50)
[2019-11-24] MEDS: K, MAG and/or Phos replacement - Verify level? MC SCH (08:00)
[2019-11-24] MEDS ORDERED: metoclopramide 5 mg/ml inj IV ONE (12:10)
[2019-11-24] MEDS ORDERED: methylnaltrexone br 12mg/0.6ml inj***SubQ only SQ SCH (12:10)
[2019-11-24] MEDS ORDERED: potassium Cl 20 mEq SR tablet PO STA (12:36)
[2019-11-24] MEDS ORDERED: furosemide 20 MG/2 ML vial IV ONE (12:40)
--- NOTE | 2019-11-24 13:26 | NUR ---
Reassessment: Pt PO 75-100% avg regular diet and daily B12 injections meeting needs. L4-5 disc herniation noted also pending copper toxicity results in addition to intrinsic factor results. Intrinsic factor antibody results elevated though unsure meaning per MD. LBM 11/20; pt feels constipated w/ colace and relistor added for bowel care to start today per EMR. Will continue to monitor. Recommend: 1. continue regular diet 2. continue cyanocobalamin 3. wt per rx 4. bowel care as needed Addendum: 11/24/19 at [address] Amended: Links added.
[2019-11-24] MEDS: CefTRIAXone/D5W-Rocephin 1gm 50 ML IV SCH (14:04)
[2019-11-24] MEDS: ipratropium/albuterol 3ml nebule NEB SCH ×2 (15:44→20:15)
[2019-11-24] MEDS: levoFLOXACIN-Levaquin 500mg/D5 100 ML IV SCH (16:06)
[2019-11-24 17:40] VITALS: BP 106/58
[2019-11-24 19:00] VITALS: BP 125/77
[2019-11-24] MEDS: docusate sod 100mg capsule PO SCH (20:00)
[2019-11-24] MEDS: cyclobenzaprine 10mg tablet PO SCH (21:45)
[2019-11-24] MEDS: Melatonin 3mg tablet PO PRN (21:52)
[2019-11-24 23:00] VITALS: BP 113/59
[2019-11-25 03:00] VITALS: BP 120/78
--- NOTE | 2019-11-25 03:00 | NUR ---
Patient in room PCU 3016. I have received report from Joyce PULLIAM and had the opportunity to ask questions and assume patient care for the remainder of the shift.
[2019-11-25 06:00] VITALS: BP 124/55
--- NOTE | 2019-11-25 06:13 | NUR ---
Patient in room PCU 3016. I have received report from Roxana PULLIAM and had the opportunity to ask questions and assume patient care.
--- NOTE | 2019-11-25 06:13 | NUR ---
Problems reprioritized. Patient report given, questions answered & plan of care reviewed with Charito PULLIAM.
[2019-11-25 06:24] LABS: BASOPHILS % (AUTO) 0.2 % (0-1); EOSINOPHILS % (AUTO) 0.3 % (0-6); HEMOGLOBIN 11.4 g/dl (14.0-17.9); LYMPHOCYTES # (AUTO) 1.9 X10'3 (1.1-4.8); LYMPHOCYTES % (AUTO) 17.5 % (21-51); MEAN CORPUSCULAR HEMOGLOBIN 33.1 PG (27.0-31.0); MEAN CORPUSCULAR HGB CONC 35.6 g/dL (33.0-36.5); MEAN CORPUSCULAR VOLUME 93.1 FL (78-98); MEAN PLATELET VOLUME 7.6 FL (7.4-10.4); MONOCYTES # (AUTO) 0.9 X10'3 (0-0.9); MONOCYTES % (AUTO) 8.5 % (2-12); NEUTROPHILS # (AUTO) 7.8 X10'3 (1.8-7.7); NEUTROPHILS % (AUTO) 73.5 % (42-75); PLATELET COUNT 386 X10'3 (140-440); RED BLOOD COUNT 3.44 X10'6 (4.70-6.10); RED CELL DISTRIBUTION WIDTH 15.3 % (11.5-14.5); WHITE BLOOD COUNT 10.6 X10'3 (4.5-11.0)
[2019-11-25 06:35] LABS: ALANINE AMINOTRANSFERASE 79 U/L (12-78); ALBUMIN 2.6 G/DL (3.4-5.0); ALBUMIN/GLOBULIN RATIO 0.4 (1.1-1.5); ALKALINE PHOSPHATASE 128 IU/L (46-116); ANION GAP 8 (8-16); ASPARTATE AMINO TRANSFERASE 34 U/L (10-37); BILIRUBIN,TOTAL 0.7 MG/DL (0.1-1.0); BLOOD UREA NITROGEN 10 MG/DL (7-18); BUN/CREATININE RATIO 10.3 (5.4-32.0); CALCIUM 9.2 MG/DL (8.5-10.1); CHLORIDE 101 MMOL/L (99-107); CREATININE 0.97 MG/DL (0.60-1.10); GLUCOSE 103 MG/DL (70-104); MAGNESIUM 2.4 MG/DL (1.5-2.4); PHOSPHORUS 4.8 MG/DL (2.3-4.5); POTASSIUM 3.8 MMOL/L (3.5-5.1); SODIUM 136 MMOL/L (135-145); TOTAL CARBON DIOXIDE 27.1 MMOL/L (24-32); TOTAL PROTEIN 9.1 G/DL (6.4-8.2); eGFR > 90 ML/MIN
[2019-11-25] MEDS: K, MAG and/or Phos replacement - Verify level? MC SCH (07:29)
[2019-11-25] MEDS: ipratropium/albuterol 3ml nebule NEB SCH ×3 (08:19→17:17)
[2019-11-25] MEDS: levoFLOXACIN-Levaquin 500mg/D5 100 ML IV SCH (08:48)
[2019-11-25] MEDS: CefTRIAXone/D5W-Rocephin 1gm 50 ML IV SCH (08:48)
[2019-11-25] MEDS: docusate sod 100mg capsule PO SCH (08:49)
[2019-11-25] MEDS: pantoprazole 40mg Tablet.DR PO SCH (08:49)
[2019-11-25] MEDS: enoxaparin 40mg/0.4ml syringe SUBCUT SCH (08:49)
[2019-11-25 11:00] VITALS: BP 139/77
[2019-11-25] MEDS ORDERED: ENOX40DI11 SUBCUT (14:29)
--- NOTE | 2019-11-25 15:06 | NUR ---
Called MRI three times to figure out when MRI of head is going to be performed, no answer, sent a page as well, awaiting answer from MRI personnel.
--- NOTE | 2019-11-25 17:06 | NUR ---
Called Report to [facility] MCMAHAN and gave report to Ramila GALLEGO
--- NOTE | 2019-11-25 18:10 | NUR ---
Patient in room PCU 3016. I have received report from Megha PULLIAM and had the opportunity to ask questions and assume patient care.
--- NOTE | 2019-11-25 18:30 | NUR ---
Patient in room PCU 3016. I have received report from Charito PULLIAM and had the opportunity to ask questions and assume patient care. Patient is discharging tonight at 1900, to [facility] per report.
--- NOTE | 2019-11-25 19:10 | NUR ---
Patient has been picked up by Transfer personnel, leaving via gurney.
== END 2019-11-25 19:10 | DRG 421 ==
LOC: ER 11:06 → ED HOLD 23:25 → CICU 2S 11-16 02:15 → PCU 3S 11-16 17:51
PROVIDERS: ADMIT Internal Medicine Critical Care Medicine; ATTEND Internal Medicine Critical Care Medicine
PROC: 009U3ZZ Drainage of Spinal Canal, Percutaneous Approach (ICD-10-PCS; principal; 2019-11-15)
PROC: BW38YZZ Magnetic Resonance Imaging (MRI) of Head using Other Contrast (ICD-10-PCS; 2019-11-25)
DX: E53.8 Deficiency of other specified B group vitamins (principal); F12.90 Cannabis use, unspecified, uncomplicated; M54.5 Low back pain; R15.9 Full incontinence of feces; D68.9 Coagulation defect, unspecified; R19.7 Diarrhea, unspecified; R26.2 Difficulty in walking, not elsewhere classified; R29.898 Other symptoms and signs involving the musculoskeletal system; R41.82 Altered mental status, unspecified; Z79.899 Other long term (current) drug therapy
CPT/HCPCS: 36415; 70450; 70553; 71045; 72141; 72146; 72148; 76937; 80053; 80305; 80320; 81001; 82140; 82607; 82784; 82945; 83735; 84100; 84155; 84157; 84165; 84484; 85025; 85610; 85730; 86334; 86340; 86703; 87015; 87070; 87081; 87324; 87449; 89051; 93005; 94640; 94667; 94760; 97110; 97112; 97162; 97530; 99285; G0378; J0696; J1459; J1650; J1940; J1956; J2001; J2060; J2212; J2405; J2765; J2997; J3010; J3420; J7030